=== PATIENT | male | born 1980 ===

== ENCOUNTER 2022-07-31 05:00 | Day surgery (SDC) | payer OTHER | END 2022-07-31 10:00 | disposition home or self-care (01) | LOC: AMB-ENDOS 05:00 → CIR.AMB 13:30 → AMB-ENDOS 13:30 | PROVIDERS: ATTEND Surgery | DX: K29.50 Unspecified chronic gastritis without bleeding (principal); K44.9 Diaphragmatic hernia without obstruction or gangrene; Z20.822 Contact with and (suspected) exposure to COVID-19; I10 Essential (primary) hypertension ==